=== PATIENT | male | born 1980 | race African-American/Black ===

== ENCOUNTER 2018-06-30 12:25 | Inpatient (IN) | payer OTHER, MEDICAID ==
[~2018-06-30] VITALS: Ht 185.4 cm; Wt 99.8 kg
[2018-06-30] MEDS ORDERED: IBUPROFEN600 MG ORAL (12:36)
--- NOTE | 2018-06-30 12:41 | NUR ---
ED Nurse Note: Pt came in from home due to L sided gum swelling x 3 days. Pain 10/10 allan. Also c/o dizziness. Pt could not get a dental appointment. AOx4, VSS. Will cont to monitor.
[2018-06-30 12:43] VITALS: BP 154/91
[2018-06-30] MEDS ORDERED: Ampicillin/Sulbactam Sod 3 GM in NS 110 ML IV STA (13:03)
--- NOTE | 2018-06-30 13:11 | Emergency Room Report ---
History of Present Illness General Chief Complaint: Pain Source: Patient Present Illness HPI Patient presents with left facial swelling and pain. This is worsened over the last 2 weeks. The last few days he's been having headaches, fevers and chills and has difficulty eating food. He can't open his mouth fully. He's able to drink liquids. The pain also radiates into his neck however he is able to bend his neck without difficulty. Patient denies any nausea, vomiting or diarrhea. Pain is rated 10/10, pressure and sharp aching. Radiates to L side of head. Constant. No medications taken. Patient denies trauma. The patient admits that he has problems with his teeth. He is avoided dental treatment. He never had a problem like this before. No chest pain, palpitations, dysuria, abdominal pain, shortness of breath, depression, visual changes. Allergies: Coded Allergies: No Known Allergies (Unverified , 06/30/18) Patient History Past Medical History: see triage record Social History: Reports: drug use - THC; Denies: smoking Social History Narrative claribel canseco from [address] Lives by self Reviewed Nursing Documentation: PMH: Agreed; PSxH: Agreed Nursing Documentation-PMH Past Medical History: No History, Except For Review of Systems All Other Systems: negative except mentioned in HPI Physical Exam Vital Signs Date Time Temp Pulse Resp B/P (MAP) Pulse Ox O2 Delivery O2 Flow Rate FiO2 06/30/18 12:31 97.5 76 17 150/97 97 Room Air Sp02 EP Interpretation: reviewed, normal General Appearance: well appearing, no apparent distress, GCS 15, non-toxic Head: normocephalic, atraumatic Eyes: bilateral eye PERRL, bilateral eye other ENT: moist mucus membranes, other - buccal and gum swelling with caries - unable to open mouth fully Neck: supple, no meningismus, no bony tend Respiratory: chest non-tender, lungs clear, normal breath sounds Cardiovascular #1: regular rate, rhythm Cardiovascular #2: 2+ radial (R) Gastrointestinal: normal inspection, normal bowel sounds, non tender, no mass, non-distended Genitourinary: no CVA tenderness Musculoskeletal: back normal, gait/station normal, normal range of motion Neurologic: alert, oriented x3, grossly normal Psychiatric: depressed affect Skin: normal inspection, warm/dry Medical Decision Making Diagnostic Impression: Primary Impression: Facial abscess ER Course Patient presents with facial swelling with difficulty eating and pain. Differential includes dental abscess, pterygomandibular abscess, cellulitis and possibly bacteremia amongst others. Patient will be evaluated with labs and CT of the face with contrast. The patient will receive IV hydration, Unasyn, metronidazole and Toradol. CBC normal. CBC normal. Chest x-ray no infiltrates. CT of the maxillofacial area with contrast reveals stranding without organized abscess. Urinalysis negative. Tox screen positive for THC and also opiates however this was obtained after morphine was given in the emergency department. Based on the extensive degree of infection the patient is admitted for IV antibiotics. At this time no surgical drainage is indicated. This may be necessary in the future. Laboratory Tests Test 06/30/18 13:47 White Blood Count 9.9 K/UL (4.8-10.8) Red Blood Count 4.06 M/UL (4.70-6.10) L Hemoglobin 12.8 G/DL (14.2-18.0) L Hematocrit 38.6 % (42.0-52.0) L Mean Corpuscular Volume 95 FL (80-99) Mean Corpuscular Hemoglobin 31.5 PG (27.0-31.0) H Mean Corpuscular Hemoglobin Concent 33.2 G/DL (32.0-36.0) Red Cell Distribution Width 11.8 % (11.6-14.8) Platelet Count 242 K/UL (150-450) Mean Platelet Volume 6.8 FL (6.5-10.1) Neutrophils (%) (Auto) 77.6 % (45.0-75.0) H Lymphocytes (%) (Auto) 13.5 % (20.0-45.0) L Monocytes (%) (Auto) 7.3 % (1.0-10.0) Eosinophils (%) (Auto) 0.7 % (0.0-3.0) Basophils (%) (Auto) 0.9 % (0.0-2.0) Erythrocyte Sedimentation Rate Pending Prothrombin Time 10.5 SEC (9.30-11.50) Prothrombin Time INR 1.0 (0.9-1.1) PTT 28 SEC (23-33) Sodium Level 140 MMOL/L (136-145) Potassium Level 4.1 MMOL/L (3.5-5.1) Chloride Level 105 MMOL/L (98-107) Carbon Dioxide Level 26 MMOL/L (21-32) Anion Gap 10 mmol/L (5-15) Blood Urea Nitrogen 19 mg/dL (7-18) H Creatinine 1.0 MG/DL (0.55-1.30) Estimate Glomerular Filtration Rate > 60 mL/min (>60) Glucose Level 105 MG/DL (74-106) Lactic Acid Level 0.60 mmol/L (0.4-2.0) Calcium Level 8.8 MG/DL (8.5-10.1) Total Bilirubin 0.4 MG/DL (0.2-1.0) Aspartate Amino Transferase (AST) 26 U/L (15-37) Alanine Aminotransferase (ALT) 24 U/L (12-78) Alkaline Phosphatase 41 U/L (46-116) L Total Creatine Kinase 437 U/L (26-308) H Troponin I 0.000 ng/mL (0.000-0.056) C-Reactive Protein, Quantitative < 0.4 mg/dL (0.00-0.90) Total Protein 6.8 G/DL (6.4-8.2) Albumin 3.9 G/DL (3.4-5.0) Globulin 2.9 g/dL Albumin/Globulin Ratio 1.3 (1.0-2.7) Serum Alcohol < 3 mg/dL Chest X-Ray Diagnostic Results Chest X-Ray Diagnostic Results : Chest X-Ray Ordered: Yes # of Views/Limited/Complete: 1 View Indication: Other EP Interpretation: Yes Interpretation: no consolidation, no effusion, no pneumothorax Impression: No acute disease Electronically Signed by: Electronically signed by Dimitri Jackson MD CT/MRI/US Diagnostic Results CT/MRI/US Diagnostic Results : Imaging Test Ordered: maxilofaical w contrast Impression stranding without abscess identified Last Vital Signs Date Time Temp Pulse Resp B/P (MAP) Pulse Ox O2 Delivery O2 Flow Rate FiO2 06/30/18 21:00 Room Air 06/30/18 20:00 98.6 68 18 127/74 (91) 98 Status: improved Disposition: ADMITTED INPATIENT Condition: Serious Dimitri Jackson MD Jun 30, 2018 13:10
[2018-06-30] MEDS ORDERED: Ketorolac 30mg Inj IV ONE (13:15)
[2018-06-30] MEDS ORDERED: Isovue-300 100ml vial INJ PRN (13:15)
[2018-06-30 13:55] LABS: BASOPHILS % (AUTO) 0.9 % (0.0-2.0); EOSINOPHILS % (AUTO) 0.7 % (0.0-3.0); HEMATOCRIT 38.6 % (42.0-52.0); HEMOGLOBIN 12.8 G/DL (14.2-18.0); LYMPHOCYTES % (AUTO) 13.5 % (20.0-45.0); MEAN CORPUSCULAR VOLUME 95 FL (80-99); MONOCYTES % (AUTO) 7.3 % (1.0-10.0); NEUTROPHILS % (AUTO) 77.6 % (45.0-75.0); PLATELET COUNT 242 K/UL (150-450); RED BLOOD COUNT 4.06 M/UL (4.70-6.10); RED CELL DISTRIBUTION WIDTH 11.8 % (11.6-14.8); WHITE BLOOD COUNT 9.9 K/UL (4.8-10.8)
[2018-06-30 13:59] LABS: ANION GAP 10 mmol/L (5-15); BLOOD UREA NITROGEN 19 mg/dL (7-18); CALCIUM 8.8 MG/DL (8.5-10.1); CARBON DIOXIDE 26 MMOL/L (21-32); CHLORIDE 105 MMOL/L (98-107); POTASSIUM 4.1 MMOL/L (3.5-5.1); SODIUM 140 MMOL/L (136-145)
[2018-06-30 14:04] LABS: ALANINE AMINOTRANSFERASE 24 U/L (12-78); ALBUMIN 3.9 G/DL (3.4-5.0); ALBUMIN/GLOBULIN RATIO 1.3 (1.0-2.7); ALKALINE PHOSPHATASE 41 U/L (46-116); ASPARTATE AMINO TRANSFERASE 26 U/L (15-37); BILIRUBIN,TOTAL 0.4 MG/DL (0.2-1.0); CREATINE KINASE 437 U/L (26-308)
[2018-06-30] MEDS ORDERED: Morphine Sulfate 4mg/ml Inj (IV USE ONLY) IVP ONE (15:00)
--- NOTE | 2018-06-30 15:02 | NUR ---
ED Nurse Note: Patient was not able to provide urine. ERMD made aware. per ERMD pt is ok to be transferred without urine sample.
--- NOTE | 2018-06-30 15:09 | NUR ---
ED Nurse Note: Report given to MACO Treadwell.
[2018-06-30 15:10] VITALS: BP 109/67
--- NOTE | 2018-06-30 15:13 | NUR ---
ED Nurse Note: Patient left department in stable condition with 1 maintenance technician.
--- NOTE | 2018-06-30 15:35 | NUR ---
NURSE NOTES:ADMITTED 38 YEAR OLD MALE FR. ER BY DALI DX:FACIAL SWELLING,A/OX4,ROOM AIR,SKIN INTACT,AMBULATORY WITH WEAKNESS ON LEFT LEG SECONDARY TO H/O SCIATICA.PAIN LEVEL 4/10,COMFORTABLE ADMISSION ORDERS AND PLAN OF CARE DISCUSSED AND VERBALIZED WITH UNDERSTANDING.SEE ADMISSION ASSESSMENT FOR FURTHER MED. INFO.
[2018-06-30 16:00] VITALS: BP 134/78
--- NOTE | 2018-06-30 16:00 | NUR ---
NURSE NOTES:PATIENT STATES THAT HES TAKING 10 KINDS OF PAIN MEDS AT HOME BUT CLAIMS HE DONT KNOW THE THE NAMES,STATED HE WILL CALL HIS PMD FOR THE LIST.
[2018-06-30 16:57] LABS: APPEARANCE,URINE CLEAR; BILIRUBIN, URINE NEGATIVE (NEGATIVE); COLOR,URINE PALE YELLOW; GLUCOSE, URINE (UA) NEGATIVE (NEGATIVE); KETONES,URINE 3+ (NEGATIVE); LEUKOCYTE ESTERASE ,URINE 2+ (NEGATIVE); NITRITE,URINE NEGATIVE (NEGATIVE); PH,URINE 6.5 (4.5-8.0); PROTEIN,URINE NEGATIVE (NEGATIVE); UROBILINOGEN,URINE 1 MG/DL (0.0-1.0)
[2018-06-30] MEDS ORDERED: Vancomycin 1.5gm Premix IVPB ONE (17:00)
--- NOTE | 2018-06-30 19:15 | NUR ---
HAND-OFF: Report given to PAULO RN,PATIENT ASLEEP DURING ROUNDS.NAD..
--- NOTE | 2018-06-30 19:16 | NUR ---
NURSE NOTES: Received report & pt from MACO Treadwell. Pt lying in bed, asleep but easily arousable to verbal stimuli, a&ox4, in room air. No s/s of acute distress & no c/o pain at this time. Noted left gum/facial swelling. IV site intact/asymptomatic & S/L'd. Bed in lowest position, call light within reach. Will continue to monitor.
[2018-06-30 20:00] VITALS: BP 127/74
[2018-06-30] MEDS: HYDROcodone/Acetamin 10/325 tab ORAL PRN (22:11)
[2018-07-01] VITALS (7 sets, daily range): BP systolic 122–157; BP diastolic 68–92
[2018-07-01] MEDS: Vancomycin 1gm/D5W 275ml IVPB SCH ×6 (00:09→17:20)
[2018-07-01] MEDS: Morphine Sulfate 2mg/ml Inj(IV/IM USE ONLY) IVP PRN ×4 (00:09→21:06)
--- NOTE | 2018-07-01 07:15 | NUR ---
NURSE NOTES:BEDSIDE ROUNDS DONE WITH PAULO RN,PATIENT ASLEEP,ROOM AIR NAD.
--- NOTE | 2018-07-01 07:15 | NUR ---
HAND-OFF: Report given to MACO Treadwell. Pt in stable condition. Rounds done.
--- NOTE | 2018-07-01 07:41 | NUR ---
NURSE NOTES:EATING BREAKFAST,A/OX4,ROOM AIR,NO SIGNIFICANT CHANGE OF FACE SWELLING COMPARED YESTERDAY,PAIN 08/12,MEDICATED WITH NORCO,SEEN BY DR. CARRASCO,NO FURTHER ORDER.PLAN OF CARE FOR TODAY DISCUSSED,VERBALIZED WITH UNDERSTANDING
[2018-07-01] MEDS: HYDROcodone/Acetamin 10/325 tab ORAL PRN (08:22)
--- NOTE | 2018-07-01 09:00 | History and Physical Report ---
DATE OF ADMISSION: 06/30/2018 CHIEF COMPLAINT: Left jaw pain. HISTORY OF PRESENT ILLNESS: The patient is a 38-year-old male. He has a history of chronic lower back pain and sciatica, who presented with complaints of left jaw swelling. Per the patient, he has had some issues with his teeth. He has not seen a dentist. He has been taking Motrin, but he has had worsening pain and swelling in the left jaw area. He eventually presented to the emergency room. He had a CAT scan there, results of which are currently pending, but there was concern that the patient had a possible small abscess from his poor dentition. He is now admitted for further evaluation and care. PAST MEDICAL HISTORY: As above. PAST SURGICAL HISTORY: Includes appendectomy. CURRENT MEDICATIONS: Include "pain medications." FAMILY HISTORY: Noncontributory. SOCIAL HISTORY: Negative for tobacco or ethanol. The patient smokes marijuana for pain control. REVIEW OF SYSTEMS: Unremarkable except for left jaw pain. PHYSICAL EXAMINATION: VITAL SIGNS: Temperature 98, pulse 72, respirations 18, and blood pressure 142/81. GENERAL: The patient well-developed. HEENT: There is visible swelling in the left jaw area. There is no adenopathy noted. There is poor dentition in the lower teeth. LABORATORY DATA: White count 10, hemoglobin 12, and platelets 242. Sodium 140, potassium 4.1. UA showed too numerous to count wbc's. ASSESSMENT: This is a 38-year-old male, admitted with complaints of a dental infection, cannot rule out an abscess and possible UTI. PLAN: IV antibiotics. Follow up CAT scan and urine culture results. The patient has been told that once his infection is better controlled, he will be switched to orals, but he does need to find a dentist on the outside as there are no dental services available here. Jc Ulloa M.D. DR: BENJI JOB#: [id number] CC:
--- NOTE | 2018-07-01 09:15 | Diagnostic Imaging Report ---
Indications: Reason For Exam: ABSCESS Technique: IV administration nonionic contrast. Post contrast spiral acquisitions obtained through the face.. Multiplanar reconstructions were generated.Total dose length product 574.62 mGycm. CTDIvol(s) 28.19 mGy. Dose reduction achieved using automated exposure control Comparison: none Findings: There is fairly extensive left buccal region superficial soft tissue swelling. No focal rim-enhancing fluid collection to suggest abscess demonstrated. There is evidence of lingual jewelry. No evidence of facial or upper cervical mass or adenopathy. There are a few prominent submandibular nodes which are likely reactive The upper aerodigestive tract appears unremarkable. The dentition appears intact. No acute fractures. The sinuses are clear. The optic globes and orbits are unremarkable. There are mild degenerative changes of the cervical spine. The mastoids are clear. Impression: Left buccal region soft tissue swelling. No evidence of abscess Other findings as noted This agrees with the preliminary interpretation provided overnight by [facility] teleradiology service. The CT scanner at [facility] is accredited by the [employer] and the scans are performed using protocols designed to limit radiation exposure to as low as reasonably achievable to attain images of sufficient resolution adequate for diagnostic evaluation.
[2018-07-01] MEDS: Piperacillin/Tazobactam 3.375 GM in NS 110 ML IVPB SCH ×2 (10:40→21:06)
--- NOTE | 2018-07-01 12:21 | Diagnostic Imaging Report ---
Indication: Chest pain Technique: One view of the chest Comparison: none Findings: Lungs and pleural spaces are clear. Heart size is normal Impression: No acute process
--- NOTE | 2018-07-01 13:36 | NUR ---
*-* INSURANCE *-* AVAILABLE CLINICALS HAVE BEEN FAXED TO: FLAKO ROTHMAN: KRYSTAL Rojas [phone].....RYLEE REVIEV/CLINICAL
--- NOTE | 2018-07-01 14:38 | NUR ---
CASE MANAGEMENT:REVIEW 38 YR OLD MALE FROM HOME TO ER CC: MOUTH/GUMS PAIN AND SEVERE SWELLING SI: FACIAL ABSCESS 97.6 76 17 150/97 97% ON RA H/H-12.8/38.6 TCK+437 IS: IV AMPICILLIN IV FLAGYL 1L NS BOLUS IV TORADOL CT MAXILLOFACIAL CHEST XRAY : MED/SURG STATUS 3 [facility]
--- NOTE | 2018-07-01 15:50 | NUR ---
NURSE NOTES:HAD L/S SPINE XRAY DUE TO C/O SCIATICA.
--- NOTE | 2018-07-01 16:43 | Diagnostic Imaging Report ---
Indication: Chronic back pain, injury 4 months ago Technique: For views of the lumbar spine Comparison: None Findings: Bony alignment is normal. Vertebral body heights are preserved. There is mild degenerative narrowing of the L5-S1 disc. The remaining disc spaces are preserved. There is mild narrowing of the bilateral L5-S1 facets. The remaining facet joint spaces are preserved. Sacroiliac joint spaces are preserved. The surrounding soft tissues are unremarkable. Impression: Mild degenerative changes, as described No acute bony trauma
--- NOTE | 2018-07-01 19:17 | NUR ---
HAND-OFF: Report given to PAULO DEWEY.PATIENT STABLE.
--- NOTE | 2018-07-01 19:18 | NUR ---
NURSE NOTES: Received report & pt from MACO Treadwell. Pt lying in bed, asleep but easily arousable to verbal stimuli, a&ox4, in room air. No s/s of acute distress & no c/o pain at this time. Noted left gum/facial swelling still. IV site intact/asymptomatic & S/L'd. Bed in lowest position, call light within reach. Will continue to monitor.
--- NOTE | 2018-07-01 21:30 | NUR ---
NURSE NOTES: Pt complaining of chest pain, per pt it feels heavy on the ride side with on/off throbbing 7-8 out of 10 pain. Latest BP 148/86 HR 66. STAT EKG done. Called Dr. Ulloa's emergency line & Dr. Saucedo answered. Relayed message to MD regarding pt's concern & EKG result was normal sinus rhythm. No new orders as of now per Dr. Saucedo. Charge nurse Leonel also aware.
--- NOTE | 2018-07-01 21:40 | NUR ---
NURSE NOTES: Pt states he is feeling better now. Chest pain slowly going away after Morphine IVP was given. Will continue to monitor.
--- NOTE | 2018-07-01 22:29 | NUR ---
NURSE NOTES: Pt sleeping now. No acute distress noted. Even & unlabored breathing noted.
[2018-07-02] MEDS: HYDROcodone/Acetamin 10/325 tab ORAL PRN (01:58)
[2018-07-02] MEDS: Vancomycin 1gm/D5W 275ml IVPB SCH ×4 (01:58→10:50)
[2018-07-02 04:00] VITALS: BP 129/76
[2018-07-02] MEDS: Piperacillin/Tazobactam 3.375 GM in NS 110 ML IVPB SCH ×2 (05:49→14:00)
[2018-07-02] MEDS ORDERED: AUGMENTIN 500-1 EACH ORAL (07:22)
--- NOTE | 2018-07-02 07:30 | NUR ---
HAND-OFF: Report given to MACO Hall. Rounds done. Pt in stable condition.
--- NOTE | 2018-07-02 07:38 | NUR ---
NURSE NOTES: Pt has some swelling to left side of face. Able to verbalize known needs. Call light is in reach . Inquiring about discharge orders. Informed that Dr crandall antibiotic order.
[2018-07-02 08:00] VITALS: BP 130/81
--- NOTE | 2018-07-02 09:05 | NUR ---
NURSE NOTES: Zosyn is not complete will give Vancomycin when complete
--- NOTE | 2018-07-02 11:59 | NUR ---
*-* INSURANCE *-* AVAILABLE CLINICALS HAVE BEEN FAXED TO: FLAKO ROTHMAN: KRYSTAL Rojas [phone].....RYLEE REVIEV/CLINICAL
[2018-07-02 12:00] VITALS: BP 126/80
--- NOTE | 2018-07-02 14:59 | NUR ---
NURSE NOTES: Pt provided with pt teaching in regards to medication administration for use of antibiotics. Pt intellectual baseline appears to below average. Requires reinforcement teaching. Iv removed. Per pt rode his bike from [facility]. Provided with bus tokens . Instructed to follow up with Dentist for 3 loose Molars. Pt is afebrile and in stable condition. Discharge packet given
--- NOTE | 2018-07-02 15:55 | Cardiology Report ---
APPROVED REPORT EKG Measurement Heart [id number] NM [id number] Normal sinus rhythm Normal ECG
--- NOTE | 2018-07-03 03:45 | Discharge Summary ---
DATE OF ADMISSION: 06/30/2018 DATE OF DISCHARGE: 07/02/2018 ADMISSION DIAGNOSES: 1. Possible left facial abscess. 2. Chronic lower back pain. DISCHARGE DIAGNOSES: 1. Possible left facial abscess. 2. Chronic lower back pain. HOSPITAL COURSE: The patient presented with complaints of two weeks of dental pain and jaw swelling that became progressively worse. He presented to the emergency room where CT scan was done. There was initially concern about an abscess. Therefore, the patient was admitted. The CAT scan was reviewed by the radiologist and there is only soft tissue swelling and no abscess. He did receive intravenous antibiotic therapy and had significant improvement in the swelling. He was noted to have very poor dentition. The patient will be discharged and has been asked to follow up with a dentist and his primary care physician. He also had an x-ray of the spine that showed some degenerative changes. The pain is chronic in the lower back. He does have pain management scheduled in the next week. He is instructed to see his primary care doctor for followup as well as a dentist. He was discharged with a prescription for oral antibiotics for an additional 2 weeks. DISCHARGE MEDICATIONS: Please see discharge medication list for discharge medications. DIET: Soft diet. ACTIVITIES: Ad-shayy. Jc Ulloa M.D. DR: NICOLETTE JOB#: [id number] CC:
--- NOTE | 2018-07-03 15:39 | NUR ---
*-* INSURANCE *-* DISCHARGE SUMMARY BEEN FAXED TO: FLAKO CELESTIN: KRYSTAL Rojas [phone].....DIALY REVIEV/CLINICAL
== END 2018-07-02 15:05 | disposition home or self-care (01) | DRG 158 ==
LOC: EMR 13:00 → EDBEDREQ 14:10 → 3E 15:02
DX: K04.7 Periapical abscess without sinus (principal); N39.0 Urinary tract infection, site not specified; G89.29 Other chronic pain; M54.5 Low back pain; R22.9 Localized swelling, mass and lump, unspecified
CPT/HCPCS: 36415; 70487; 71045; 72110; 80053; 80202; 80307; 80329; 81003; 82550; 83605; 84484; 85025; 85610; 85651; 85730; 86140; 87086; 93005; 96361; 96365; 96366; 96367; 96375; 99285; J2405